=== PATIENT | female | born 1975 | race Caucasian/White ===

== ENCOUNTER 2020-11-21 12:31 | Emergency (ER) | payer OTHER ==
[~2020-11-21 12:31] MED LIST: BENTYL 20MG TAB20 MG PO; FLEXERIL 10 MG10 MG PO; MEDROL4 MG PO; TORADOL 10 MG T10 MG PO; ZOFRAN ODT 4 MG4 MG PO
== END 2020-11-21 17:37 | disposition home or self-care (01) ==
LOC: ER1 12:31
DX: S99.921A Unspecified injury of right foot, initial encounter (principal); Z90.49 Acquired absence of other specified parts of digestive tract; Z90.710 Acquired absence of both cervix and uterus; W22.8XXA Striking against or struck by other objects, initial encounter; Z23 Encounter for immunization
CPT/HCPCS: 73630; 90471; 99283

== ENCOUNTER → 2020-11-24 | Outpatient (CLI) | payer OTHER | LOC: RAD 17:05 | DX: S90.859A Superficial foreign body, unspecified foot, initial encounter (principal) | CPT/HCPCS: 73630 ==

== ENCOUNTER → 2021-06-30 | Outpatient (CLI) | payer OTHER ==
[2021-06-30 17:30] LABS: HEMOGLOBIN 12.1 gm/dl (12.3-15.3); RED BLOOD COUNT 4.07 M/UL (4.00-5.10); WHITE BLOOD COUNT 4.7 K/UL (4.5-11.0)
[2021-06-30 17:53] LABS: BUN/CREATININE RATIO 15 (0-10)
[2021-07-02 08:10] LABS: CREATININE, URINE 103.7 mg/dL (Not Estab.)
== END ==
LOC: LAB 17:02
PROVIDERS: Physician Assistant
DX: Z01.84 Encounter for antibody response examination (principal); R73.03 Prediabetes; M25.551 Pain in right hip
CPT/HCPCS: 36415; 73502; 80053; 80061; 82043; 82570; 83036; 85025; 86765

== ENCOUNTER → 2021-07-17 | Outpatient (CLI) | payer OTHER | LOC: ECHO 07-11 10:00 | DX: R93.1 Abnormal findings on diagnostic imaging of heart and coronary circulation (principal); I08.1 Rheumatic disorders of both mitral and tricuspid valves | CPT/HCPCS: ECHO; 93306 ==

== ENCOUNTER → 2022-02-28 | Outpatient (CLI) | payer OTHER | LOC: RAD 16:06 | DX: M25.511 Pain in right shoulder (principal); M79.601 Pain in right arm | CPT/HCPCS: 73030; 73060 ==